=== PATIENT | female | born 1975 | race Two or more races ===

== ENCOUNTER 2022-08-30 14:57 | Emergency (ER) | payer OTHER ==
[~2022-08-30] VITALS: Ht 165.1 cm; Wt 58.1 kg
[2022-08-30] MEDS ORDERED: CEPH500T PO (15:34)
--- NOTE | 2022-08-30 15:55 | NUR ---
Patient discharged to home in stable condition. Written and verbal after care instructions given. Patient verbalizes understanding of instructions. Stressed follow up or return to ER for worsening s/s.
[2022-08-30 16:29] VITALS: BP 120/74
== END 2022-08-30 15:55 | disposition home or self-care (01) ==
LOC: ER 14:57
DX: T63.301A Toxic effect of unspecified spider venom, accidental (unintentional), initial encounter (principal); Y92.89 Other specified places as the place of occurrence of the external cause; L03.115 Cellulitis of right lower limb
CPT/HCPCS: A4663